=== PATIENT | male | born 1935 | race Hispanic/Latino ===

== ENCOUNTER 2017-08-20 16:20 | Emergency (ER) | payer OTHER, MEDICARE ==
[2017-08-20] MEDS ORDERED: ORPHENADRINE CITRATE 30 MG/ML ML ONE (17:14)
[2017-08-20] MEDS ORDERED: KETOROLAC TROMETHAMINE 15MG/ML ONE (17:14)
[2017-08-20] MEDS ORDERED: MORPHINE SULFATE 2 MG/ML 1ML SYG ONE (17:15)
[2017-08-20] MEDS ORDERED: ONDANSETRON ODT 4 MG TAB ONE (17:15)
== END 2017-08-20 19:00 | disposition home or self-care (01) ==
LOC: EDH 16:20
DX: S16.1XXA Strain of muscle, fascia and tendon at neck level, initial encounter (principal); Z87.891 Personal history of nicotine dependence; X58.XXXA Exposure to other specified factors, initial encounter; Y93.89 Activity, other specified; Y92.098 Other place in other non-institutional residence as the place of occurrence of the external cause; Y99.8 Other external cause status
CPT/HCPCS: 72040; 96372 ×3; 99284; J1885; J2360